=== PATIENT | female | born 1970 | race Caucasian/White ===

== ENCOUNTER 2016-07-24 09:02 | Emergency (ER) | payer OTHER ==
[~2016-07-24] VITALS: Ht 172.7 cm; Wt 72.0 kg
[2016-07-24 09:04] VITALS: BP 130/94; PULSE 86; RESP 17; TEMP 98.5; O2SAT 100
[2016-07-24] MEDS ORDERED: SODIUM CHLORIDE 0.9% FLUSH 10 ML FLUSH IV FLUSH PRN (09:30)
[2016-07-24 09:37] VITALS: RESP 18; O2SAT 98
--- NOTE | 2016-07-24 09:38 | PD ---
HPI Chief Complaint: Dizziness Time Seen by Provider: 09:15 Travel History International Travel<30 days: No Contact w/Intl Traveler<30days: No Traveled to known affect area: No History of Present Illness HPI 46-year-old female here for evaluation of dizziness/lightheadedness/near syncope. Symptoms started this morning. The patient felt as if she may be dehydrated and drank 3 bottles of water. She then went to lay down, however upon getting up she felt dizzy/lightheaded again. Symptoms are made worse with movements. She states is the she feels intoxicated, however has not had an alcoholic beverage in over 2 weeks. She denies fevers or recent illness. No chest pain or dyspnea. She no longer has her menstrual periods. No urinary symptoms. No paresthesias or motor deficits. PFSH Past Medical History Medical History: Denies Significant Hx Diminished Hearing: No Immunizations Current: Yes Tetanus Vaccination: > 5 Years Influenza Vaccination: No ?: Not LMP: [employer] Past Surgical History Surgical History: No Previous Surgery Social History Alcohol Use: Yes (social) Tobacco Use: No Substance Use: No Allergies-Medications (Allergen,Severity, Reaction): Coded Allergies: Nut Tree (Verified Allergy, Unknown, 07/24/16) Bard (Verified Allergy, Unknown, 07/24/16) Reported Meds & Prescriptions Reported Meds & Active Scripts Active No Active Prescriptions or Reported Medications Review of Systems Except as stated in HPI: all other systems reviewed are Neg Physical Exam Narrative GENERAL: Well-developed, well-nourished, comfortable, no acute distress. Ambulated to the restroom without difficulty and without assistance. SKIN: Focused skin assessment warm/dry. No rash. No pallor. HEAD: Atraumatic. Normocephalic. EYES: Pupils equal, round, 3 mm, reactive to light. EOMI. no nystagmus. No scleral icterus. No injection or drainage. ENT: No nasal bleeding or discharge. Mucous membranes pink and moist. Right external auditory canal with cerumen impaction. Left tympanic membrane and external auditory canals are normal. NECK: Trachea midline. No JVD. No nuchal rigidity. CARDIOVASCULAR: Regular rate and rhythm. Distal pulses brisk and equal bilaterally. RESPIRATORY: No accessory muscle use. Clear to auscultation. Breath sounds equal bilaterally. GASTROINTESTINAL: Abdomen soft, non-tender, nondistended. MUSCULOSKELETAL: No obvious deformities. No clubbing. No cyanosis. No edema. NEUROLOGICAL: Awake and alert. No obvious cranial nerve deficits. Motor grossly within normal limits. Normal speech. PSYCHIATRIC: Appropriate mood and affect; insight and judgment normal. Data Data Last Documented VS Vital Signs Date Time Temp Pulse Resp B/P Pulse Ox O2 Delivery O2 Flow Rate FiO2 07/24/16 09:37 18 98 Room Air 07/24/16 09:04 98.5 86 130/94 Orders Complete Blood Count With Diff (07/24/16 09:21) Comprehensive Metabolic Panel (07/24/16 09:21) Urinalysis - C+S If Indicated (07/24/16 09:21) Iv Access Insert/Monitor (07/24/16 09:21) Ecg Monitoring (07/24/16 09:21) Oximetry (07/24/16 09:21) Sodium Chloride 0.9% Flush (Ns Flush) (07/24/16 09:30) Electrocardiogram (07/24/16 09:21) Ed Urine Pregnancytest Poc (07/24/16 09:21) Ct Brain W/O Iv Contrast(Rout) (07/24/16 ) Ckmb (Isoenzyme) Profile (07/24/16 09:29) Troponin I (07/24/16 09:29) Ear Irrigation (07/24/16 09:52) CKMB (07/24/16 09:30) CKMB% (07/24/16 09:30) Meclizine (Antivert) (07/24/16 10:30) Electrocardiogram (07/24/16 ) Troponin I (07/24/16 12:00) Labs Laboratory Tests Test 07/24/16 07/24/16 07/24/16 09:30 09:56 12:13 White Blood Count 4.8 TH/MM3 Red Blood Count 3.59 MIL/MM3 Hemoglobin 10.8 GM/DL Hematocrit 33.2 % Mean Corpuscular Volume 92.5 FL Mean Corpuscular Hemoglobin 30.1 PG Mean Corpuscular Hemoglobin 32.6 % Concent Red Cell Distribution Width 12.5 % Platelet Count 263 TH/MM3 Mean Platelet Volume 7.9 FL Neutrophils (%) (Auto) 44.3 % Lymphocytes (%) (Auto) 44.9 % Monocytes (%) (Auto) 6.7 % Eosinophils (%) (Auto) 3.3 % Basophils (%) (Auto) 0.8 % Neutrophils # (Auto) 2.1 TH/MM3 Lymphocytes # (Auto) 2.2 TH/MM3 Monocytes # (Auto) 0.3 TH/MM3 Eosinophils # (Auto) 0.2 TH/MM3 Basophils # (Auto) 0.0 TH/MM3 CBC Comment DIFF FINAL Differential Comment Sodium Level 142 MEQ/L Potassium Level 3.7 MEQ/L Chloride Level 103 MEQ/L Carbon Dioxide Level 27.7 MEQ/L Anion Gap 11 MEQ/L Blood Urea Nitrogen 11 MG/DL Creatinine 0.83 MG/DL Estimat Glomerular Filtration 73 ML/MIN Rate Random Glucose 82 MG/DL Calcium Level 8.5 MG/DL Total Bilirubin 0.3 MG/DL Aspartate Amino Transf 16 U/L (AST/SGOT) Alanine Aminotransferase 18 U/L (ALT/SGPT) Alkaline Phosphatase 88 U/L Total Creatine Kinase 159 U/L Creatine Kinase MB 0.7 NG/ML Troponin I LESS THAN 0.02 LESS THAN 0.02 NG/ML NG/ML Total Protein 7.4 GM/DL Albumin 3.4 GM/DL Urine Collection Type CLEAN CATCH Urine Color STRAW Urine Turbidity CLEAR Urine pH 6.0 Urine Specific [place] 1.002 Urine Protein NEG mg/dL Urine Glucose (UA) NEG mg/dL Urine Ketones NEG mg/dL Urine Occult Blood NEG Urine Nitrite NEG Urine Bilirubin NEG Urine Leukocyte Esterase NEG Urine Squamous Epithelial 0-5 /hpf Cells Urine Amorphous Sediment FEW Microscopic Urinalysis Comment CULT NOT INDICATED Urine Collection Time 0856 MDM Medical Decision Making Medical Screen Exam Complete: Yes Emergency Medical Condition: Yes Interpretation(s) EKG machine reading says consider acute ST elevation. Patient has diffuse ST elevations/J point elevations, no reciprocal changes. She is also not complaining of chest pain. I do not believe that this is a STEMI. Her EKG shows sinus, rate 64, normal axis, normal intervals, diffuse ST elevations Differential Diagnosis Vertigo, dysrhythmia, intracranial abnormality, anemia, UTI, near syncope Narrative Course EKG machine reading says consider acute ST elevation. Patient has diffuse ST elevations/J point elevations, no reciprocal changes. She is also not complaining of chest pain. I do not believe that this is a STEMI. Her EKG shows sinus, rate 64, normal axis, normal intervals, diffuse ST elevations/ elevated J-point elevation/early repolarization. Vital signs show heart rate 86, blood pressure 130/94, pulse ox 100% on room air , oral temp of 98.5F. CBC shows WBC 4.8, hemoglobin 10.8, hematocrit 33.2, platelets 263. CMP is unremarkable. Cardiac enzymes are negative. UA is unremarkable. CT head shows no acute intracranial abnormality. Right ear irrigated by my tech. Patient did not have any improvement in her vertiginous symptoms. She still feels dizzy when she goes from lying to sitting and sitting to standing. Again she is not having any chest pain. Repeat EKG is very similar to the first one with diffuse ST elevations, likely early repolarization/elevated J points, no reciprocal changes. Delta troponin was performed 3 hours after the first is also negative. Patient was given a dose of meclizine and reports significant improvement in dizziness/vertiginous symptoms. Symptoms are alleviated by rest, made worse with movement, consistent with benign positional vertigo. I do not believe that there is a central cause for her vertigo. She states she is feeling much better and would like to be discharged home. I believe she is stable for discharge home with outpatient follow-up with a primary care physician this week. I will also give her the name of the ENT specialist non morse intercept technician as well as neurologist non morse intercept technician should her vertigo persists. She was informed on when to return to the emergency department. She verbalizes understanding and agreement with plan. Diagnosis Primary Impression: Vertigo Referrals: Lake Vargas MD 3 days ENT specialist. Cuate Amaro PhD 3 days Neurologist Primary Care Physician 3 days Additional Instructions: Follow-up with a primary care physician this week. Stay hydrated with plenty of fluids. Return to the emergency department for worsening symptoms or any other concerns. Scripts Meclizine 25 Mg Tab25 Mg PO TID PRN (VERTIGO) #20 TAB Ref 0 Prov:Noah Dupree MD 07/24/16 Disposition: 01 DISCHARGE HOME Condition: Stable Noah Dupree MD Jul 24, 2016 09:38
[2016-07-24 09:56] LABS: AUTOMATED NEUTROPHIL # 2.1 TH/MM3 (1.8-7.7); BASOPHIL % 0.8 % (0.0-2.0); EOSINOPHIL # 0.2 TH/MM3 (0-0.4); EOSINOPHIL % 3.3 % (0.0-4.0); HEMATOCRIT 33.2 % (35.0-46.0); HEMO FLAGS DIFF FINAL; LYMPH % 44.9 % (9.0-44.0); LYMPHOCYTE # 2.2 TH/MM3 (1.0-4.8); MEAN CELL VOLUME 92.5 FL (80.0-100.0); MEAN CORPUSCULAR HEMOGLOBIN 30.1 PG (27.0-34.0); MEAN CORPUSCULAR HGB CONC 32.6 % (32.0-36.0); MONO % 6.7 % (0.0-8.0); NEUT % 44.3 % (16.0-70.0); PLATELET COUNT 263 TH/MM3 (150-450); RED BLOOD COUNT 3.59 MIL/MM3 (4.00-5.30); RED CELL DISTRIBUTION WIDTH 12.5 % (11.6-17.2); WHITE BLOOD COUNT 4.8 TH/MM3 (4.0-11.0)
[2016-07-24 10:04] LABS: BLOOD, URINE NEG (NEG); GLUCOSE,URINE NEG (NEG); KETONE, URINE NEG (NEG); METHOD OF COLLECTION CLEAN CATCH; NITRITE,URINE NEG (NEG)
[2016-07-24 10:04] LABS: CHLORIDE 103 MEQ/L (98-107); POTASSIUM 3.7 MEQ/L (3.5-5.1); SODIUM (NA) 142 MEQ/L (136-145)
[2016-07-24 10:05] LABS: URINE COLOR STRAW (YELLW/STRAW)
[2016-07-24 10:08] LABS: ANION GAP 11 MEQ/L (5-15); BICARBONATE 27.7 MEQ/L (21.0-32.0); BLOOD UREA NITROGEN 11 MG/DL (7-18)
[2016-07-24 10:08] LABS: COMMENT (UR) CULT NOT INDICATED; CULTURE IF INDICATED CULT NOT INDICATED; SQUAMOUS EPITHELIAL CELL URINE 0-5 /hpf (0-5)
[2016-07-24 10:11] LABS: ALT (GPT) 18 U/L (10-53); AST (GOT) 16 U/L (15-37); GLOMERULAR FILTRATION RATE 73 ML/MIN (>89)
[2016-07-24 10:13] LABS: TOTAL BILIRUBIN ADULT 0.3 MG/DL (0.2-1.0)
[2016-07-24 10:14] LABS: ALKALINE PHOSPHATASE 88 U/L (45-117)
--- NOTE | 2016-07-24 10:14 | RADHPO ---
EXAM DATE/TIME: 07/24/2016 09:32 [facility] COMPARISON: No previous studies available for comparison. INDICATIONS : Dizziness this morning. RADIATION DOSE: 59.26 CTDIvol (mGy) MEDICAL HISTORY : None SURGICAL HISTORY : None. ENCOUNTER: Initial ACUITY: 1 day PAIN SCALE: 0/10 LOCATION: cranial TECHNIQUE: Multiple contiguous axial images were obtained of the head. Using automated exposure control and adj ustment of the mA and/or kV according to patient size, radiation dose was kept as low as reasonably a chievable to obtain optimal diagnostic quality images. FINDINGS: CEREBRUM: The ventricles are normal for age. No evidence of midline shift, mass lesion, hemorrhage or acute in farction. No extra-axial fluid collections are seen. POSTERIOR FOSSA: The cerebellum and brainstem are intact. The 4th ventricle is midline. The cerebellopontine angle i s unremarkable. EXTRACRANIAL: The visualized portion of the orbits is intact. SKULL: The calvaria is intact. No evidence of skull fracture. CONCLUSION: No acute intracranial findings. Zac Fernandez MD on July 24, 2016 at 10:10 Board Certified Radiologist. This report was verified electronically.
[2016-07-24 10:15] LABS: CREATINE KINASE 159 U/L (26-192)
[2016-07-24 10:27] LABS: CKMB 0.7 NG/ML (0.5-3.6)
[2016-07-24] MEDS ORDERED: MECLIZINE HCL 25 MG TAB PO ONE (10:30)
[2016-07-24] MEDS ORDERED: MECL-62 PO (12:51)
[2016-07-24 12:59] VITALS: BP 128/90
--- NOTE | 2016-07-25 23:11 | EKG ---
Date Performed: 07/24/2016 Time Performed: 10:26:02 PTAGE: 46 years EKG: Sinus rhythm Inferior and lateral ST elevation, CONSIDER ACUTE INFARCT Abnormal ECG PREVIOUS TRACING : 07/24/2016 09.24 Compared to prior tracing no significant change DOCTOR: Dallas Colón Interpretating Date/Time 07/25/2016 23:10:55
--- NOTE | 2016-07-25 23:12 | EKG ---
Date Performed: 07/24/2016 Time Performed: 09:24:00 PTAGE: 46 years EKG: CONSIDER ACUTE ST ELEVATION [place] Sinus rhythm Inferior ST elevation, CONSIDER ACUTE INFARCT Abnormal ECG NO PREVIOUS TRACING DOCTOR: Dallas Colón Interpretating Date/Time 07/25/2016 23:12:07
== END 2016-07-24 13:07 | disposition home or self-care (01) ==
LOC: PHED 09:02
DX: R42 Dizziness and giddiness (principal); R94.31 Abnormal electrocardiogram [ECG] [EKG]
CPT/HCPCS: 70450; 80053; 81001; 82550; 82552; 84484; 84703; 85025; 93005